=== PATIENT | male | born 1980 | race Caucasian/White ===

== ENCOUNTER 2020-09-14 15:56 | Inpatient (IN) | payer OTHER ==
[~2020-09-14] VITALS: Ht 177.8 cm; Wt 72.7 kg
[2020-09-14 16:02] VITALS: BP 143/79
[2020-09-14 17:02] LABS: BASO # 0.1 10*3/uL (0.0-0.1); BASO % 0.6 % (0.0-1.0); EOS # 0.1 10*3/uL (0.0-0.4); HEMATOCRIT 44.4 % (42.0-52.0); LYMPH # 1.8 10*3/uL (1.3-4.4); LYMPH % 14.3 % (27.0-41.0); MEAN CELL VOLUME 81.5 fl (80.0-94.0); MEAN CORPUSCULAR HGB 27.2 pg (27.0-31.0); MEAN CORPUSCULAR HGB CONC 33.3 g/dl (33.0-37.0); MEAN PLATELET VOLUME 9.6 fl (9.6-12.3); MONO # 1.2 10*3/uL (0.1-1.0); MONO % 9.3 % (3.0-9.0); NEUT # 9.5 10*3/uL (2.3-7.9); NEUT % 74.6 % (47.0-73.0); PLATELET COUNT AUTOMATED 291 10*3/uL (130-400); RED BLOOD COUNT 5.45 10*6/uL (4.50-5.90); RED CELL DISTRI WIDTH 12.7 % (0-14.5); WHITE BLOOD COUNT 12.7 10*3/uL (4.8-10.8)
[2020-09-14 17:15] LABS: INTERNATIONAL NORM RATIO 0.9 (2.0-3.5)
[2020-09-14 17:19] LABS: ALBUMIN 3.8 gm/dl (3.1-4.5); ALKALINE PHOSPHATASE 111 U/L (45-117); BUN 10 mg/dl (7-24); CHLORIDE 108 mmol/L (98-107); CREATININE 0.82 mg/dL (0.70-1.30); POTASSIUM 3.7 mmol/L (3.5-5.1); SGOT/AST 17 IU/L (3-35); SGPT/ALT 22 U/L (12-78); SODIUM 141 mmol/L (136-145); TOTAL PROTEIN 7.4 gm/dL (6.4-8.2)
[2020-09-14 17:20] LABS: ETHYL ALCOHOL < 3.0 mg/dl (<3); TROPONIN I < 0.015 ng/ml (<0.045)
[2020-09-14 18:06] VITALS: BP 111/43
[2020-09-14 20:00] VITALS: BP 140/79
[2020-09-15] VITALS: BP 132/82
[2020-09-15 04:00] VITALS: BP 130/78
[2020-09-15 08:00] VITALS: BP 112/70
[2020-09-15 09:31] LABS: URINE AMPHETAMINES < 1000 (1000ng/ml); URINE BARBITURATES < 200 (200ng/ml); URINE BENZODIAZEPINES < 200 (200ng/ml); URINE CANNABINOIDS (THC) < 50 (50ng/ml); URINE COCAINE > 300 (300ng/ml); URINE METHADONE < 300 (300ng/ml); URINE OPIATES < 300 (300ng/ml)
[2020-09-15 09:43] LABS: URINE PHENCYCLIDINE < 25 (25ng/ml)
[2020-09-15 12:00] VITALS: BP 116/76
[2020-09-15 16:00] VITALS: BP 112/63
[2020-09-15 20:00] VITALS: BP 142/90
[2020-09-16] VITALS: BP 138/72
[2020-09-16 07:33] VITALS: BP 112/72
[2020-09-16 12:00] VITALS: BP 124/82
[2020-09-16 16:00] VITALS: BP 127/79
[2020-09-16 20:00] VITALS: BP 133/84
[2020-09-16 23:48] VITALS: BP 143/88
[2020-09-17 08:00] VITALS: BP 124/82
[2020-09-17 12:00] VITALS: BP 112/67
[2020-09-17 16:00] VITALS: BP 111/74
[2020-09-17 20:00] VITALS: BP 124/74
[2020-09-18] VITALS: BP 107/67
[2020-09-18 08:00] VITALS: BP 125/81
== END 2020-09-18 11:14 | disposition home or self-care (01) | DRG 773 ==
LOC: ED 15:56 → 4E 16:39 → EDHOLD 16:39 → 4E 17:23
PROVIDERS: Internal Medicine; Physician Assistant; ADMIT Internal Medicine; ATTEND Internal Medicine
DX: F11.23 Opioid dependence with withdrawal (principal); F17.210 Nicotine dependence, cigarettes, uncomplicated; E83.41 Hypermagnesemia; F32.9 Major depressive disorder, single episode, unspecified; R00.1 Bradycardia, unspecified; E44.1 Mild protein-calorie malnutrition; E87.8 Other disorders of electrolyte and fluid balance, not elsewhere classified; D72.829 Elevated white blood cell count, unspecified; Z71.6 Tobacco abuse counseling; Z83.79 Family history of other diseases of the digestive system; Z82.0 Family history of epilepsy and other diseases of the nervous system; Z88.0 Allergy status to penicillin; Z68.22 Body mass index [BMI] 22.0-22.9, adult; F14.23 Cocaine dependence with withdrawal